=== PATIENT | female | born 1985 | race Hispanic/Latino ===

== ENCOUNTER 2018-06-18 15:06 | Outpatient (CLI) | payer OTHER ==
--- NOTE | 2018-06-18 16:20 | Ultrasound Report ---
BILATERAL DIGITAL DIAGNOSTIC MAMMOGRAM with CAD and LEFT BREAST ULTRASOUND: 06/18/18 CLINICAL: Mastodynia and a left palpable breast lump. COMPARISON:None. These are baseline studies. FINDINGS: The breasts are heterogeneously dense, which may obscure small masses.No mass, suspicious architectural distortion or suspicious calcifications . No mammographic finding at a left upper outer palpable marker where she feels a lump. Ultrasound of left breast was performed in the area of the palpable marker at 2 o'clock 8 cm from the nipple and demonstrated normal fibroglandular structures. No mass, cyst or shadowing. IMPRESSION: Negative mammogram and negative left breast ultrasound. Probably benign findings. BI-RADS CATEGORY: 3 - - Probably Benign RECOMMENDATION: Short-term followup with a repeat targeted left breast ultrasound at [facility] in three months. Alternatively, she could see a breast specialist for consultation sooner than the followup ultrasound. ACR BI-RADS MAMMOGRAPHIC CODES: 0 = Needs additional imaging evaluation; 1 = Negative; 2 = Benign; 3 = Probably benign; 4 = Suspicious; 5 = Malignant; 6 = Known biopsy-proven malignancy COMMENT: 1. Dense breast tissue, i.e., adenosis, fibrocystic changes, etc., may obscure an underlying neoplasm. 2. Approximately 10% of cancers are not detected with mammography. 3. A negative mammography report should not delay biopsy if a clinically suspicious mass is present. COMMENT: Patient follow-up letters are generated by our [place] application.
== END 2018-06-18 15:07 | disposition home or self-care (01) ==
LOC: MAMMO 15:06
PROVIDERS: ATTEND Family Medicine
DX: R92.8 Other abnormal and inconclusive findings on diagnostic imaging of breast (principal)
CPT/HCPCS: 77066

== ENCOUNTER 2019-10-12 22:47 | Inpatient (IN) | payer OTHER ==
[2019-10-12] MEDS ORDERED: BICITRA ORAL LIQD 30ML PO ONE (22:50)
[2019-10-12] MEDS ORDERED: FAMOTIDINE 20 MG/2 ML INJ IV ONE (22:50)
[2019-10-12] MEDS ORDERED: METOCLOPRAMIDE 10 MG/2 ML INJ IV ONE (22:50)
[2019-10-12] MEDS ORDERED: ceFAZolin/Water 2 GM/20 ML 2 GM/20 ML SYRINGE IV NR (23:00)
[2019-10-12] MEDS ORDERED: LACTATED RINGERS 1,000 ML IV SCH (23:00)
[2019-10-12] MEDS ORDERED: OXYTOCIN 20 UNIT/1000ML DRIP 20 UNITS/1,000 ML BAG IV SCH (23:00)
[2019-10-13 00:29] LABS: Basophils % (Auto) 0.3 % (0.0-1.8); Eosinophils # (Auto) 0.1 K/mm3 (0.0-0.4); Eosinophils % (Auto) 0.9 % (0.0-4.3); Hematocrit 33.9 % (30.3-42.9); Hemoglobin 11.1 gm/dl (10.1-14.3); Lymphocytes # (Auto) 2.3 K/mm3 (1.2-5.4); Lymphocytes % (Auto) 20.1 % (13.4-35.0); Mean Corpuscular HGB Conc 33 % (30-34); Mean Corpuscular Volume 88 fl (79-97); Platelet Count 155 K/mm3 (140-440); Red Blood Count 3.86 M/mm3 (3.65-5.03)
--- NOTE | 2019-10-13 00:35 | Anesthesia Day of Surgery ---
Anesthesia Day of Surgery - Day of Surgery Patient Examined: Yes Patient H&P Reviewed: Yes Patient is NPO: Yes Beta Blockers: No Cardiac Clearance: No Pulmonary Clearance: No Cristiano's Test: N/A
[2019-10-13] MEDS ORDERED: NALOXONE 0.4 MG/1 ML INJ IV PRN ×2 (00:37→09:47)
[2019-10-13] MEDS ORDERED: HYDROmorphone 1 MG/1 ML INJ IV PRN ×2 (00:37)
[2019-10-13] MEDS ORDERED: ONDANSETRON 4 MG/2 ML INJ IV PRN (00:37)
--- NOTE | 2019-10-13 00:37 | Anesthesia Consultation ---
Anesthesia Consult and Med Hx Date of service: 10/13/19 - Airway Anesthetic Teeth Evaluation: Good ROM Head & Neck: Adequate Mental/Hyoid Distance: Adequate Mallampati Class: Class III Intubation Access Assessment: Probably Good - Pulmonary Exam CTA: Yes - Cardiac Exam Cardiac Exam: RRR - Pre-Operative Health Status ASA Pre-Surgery Classification: ASA3, Emergency Proposed Anesthetic Plan: Epidural - Pulmonary Hx Smoking: No Hx Asthma: No Hx Respiratory Symptoms: No SOB: No COPD: No Home Oxygen Therapy: No Hx Pneumonia: No Hx Sleep Apnea: No - Cardiovascular System Hx Hypertension: No Hx Coronary Artery Disease: No Hx Heart Attack/AMI: No Hx Angina: No Hx Percutaneous Transluminal Coronary Angioplasty (PTCA): No Hx Cardia Arrhythmia: No Hx Pacemaker: No Hx Internal Defibrillator: No Hx Valvular Heart Disease: No Hx Heart Murmur: No Hx Peripheral Vascular Disease: No - Central Nervous System Hx Neuromuscular Disorder: No Hx Seizures: No CVA: No Hx Back Pain: Yes Hx Psychiatric Problems: No - Gastrointestinal Hx Ulcer: No Hx Gastroesophageal Reflux Disease: Yes - Endocrine Hx Renal Disease: No Hx End Stage Renal Disease: No Hx Cirrhosis: No Hx Liver Disease: No Hx Insulin Dependent Diabetes: No Hx Non-Insulin Dependent Diabetes: Yes (GESTATIONAL DM) Hx Thyroid Disease: No Hx Hypothyroidism: No Hx Hyperthyroidism: No - Hematic Hx Anemia: Yes (meds) Hx Sickle Cell Disease: No - Other Systems Hx Alcohol Use: No Hx Substance Use: No Hx Cancer: No Hx Obesity: Yes - Additional Comments Anesthesia Medical History Comments: PSH: CSECTION
[2019-10-13] MEDS ORDERED: DEXMEDETOMIDINE 200 MCG/2 ML VIAL IV ONE (00:59)
--- NOTE | 2019-10-13 03:42 | History and Physical Report ---
History of Present Illness Date of examination: 10/13/19 Date of admission: 10/12/19 22:47 Chief complaint: my water broke History of present illness: Pt is a 34 year old female RENNY 11/11/19 at 35w6d who presents with rupture of membranes at 2200 PM on 10/12/19. She reports irregular contractions but denies vaginal bleeding. She has had care at [facility] with comanagment by [facility] since 12 wks complicated by advanced maternal age, gestational diabetes A1, and history of prior section. Her GBS status is unknown. The patient does not desire future fertility. Past History Past Medical History: diabetes (gestational, per HPI ), other (h/o depression ) Past Surgical History: section Family/Genetic History: diabetes, cancer Social history: no significant social history, - Obstetrical History Expected Date of Delivery: 11/11/19 Actual Gestation: 36 Week(s) 0 Day(s) : 4 Para: 1 Hx # Term Pregnancies: 1 Number of Pregnancies: 0 Spontaneous Abortions: 2 Induced : 0 Number of Living Children: 1 Medications and Allergies Allergies Allergy/AdvReac Type Severity Reaction Status Date / Time No Known Allergies Allergy Verified 10/14/16 03:24 Home Medications Medication Instructions Recorded Confirmed Last Taken Type Ferrous Sulfate [Feosol 325 MG tab] 325 mg PO BID #60 tablet 10/14/16 10/12/19 10/12/19 08:00 Rx Ibuprofen [Motrin] 800 mg PO Q8HR PRN #30 tablet 10/14/16 10/12/19 Unknown Rx Vit-Fe Fumar-FA [ 1 tab PO QDAY #30 tablet 10/14/16 10/12/19 10/12/19 08:00 Rx Vitamin] oxyCODONE /ACETAMINOPHEN [Percocet 1 tab PO Q6HR PRN #40 tablet 10/14/16 10/12/19 Unknown Rx 5/325] Active Meds: Active Medications Hydromorphone HCl (Dilaudid) 0.5 mg IV Q5M PRN PRN Reason: BREAK Stop: 10/13/19 06:59 Hydromorphone HCl (Dilaudid) 0.5 mg IV Q4H PRN PRN Reason: breakthrough pain > 7/10 Oxytocin/Sodium Chloride (Pitocin/Ns 20 Unit/1000ml Drip) 20 units in 1,000 mls @ 0 mls/hr IV TITR NILSON Lactated Ringer's (Lactated Ringers) 1,000 mls @ 2,250 mls/hr IV PREOP NILSON Stop: 10/13/19 23:27 Naloxone HCl (Naloxone) 0.2 mg IV Q2MIN PRN PRN Reason: Res Rate </= 8 or 02 SAT < 92% Ondansetron HCl (Zofran) 4 mg IV Q8H PRN PRN Reason: Nausea And Vomiting Sodium Chloride (Sodium Chloride Flush Syringe 10 Ml) 10 ml IV PRN PRN PRN Reason: LINE FLUSH Review of Systems All systems: negative - Vital Signs Vital signs: Vital Signs Temp Resp 98.2 F 18 10/12/19 23:50 10/12/19 23:50 Temp Pulse Resp BP Pulse Ox 98.2 F 18 10/12/19 23:50 10/12/19 23:50 - Physical Exam Breasts: Positive: deferred Cardiovascular: Regular rate Lungs: Positive: Clear to auscultation Abdomen: Positive: soft (obese, gravid) Genitourinary (Female): Positive: normal external genitalia Uterus: Positive: enlarged (gravid ) - Obstetrical FHR: auscultation normal Uterine Contraction Monitor Mode: External Uterine Contraction Pattern: Irregular Uterine Tone Measurement Phase: Resting Uterine Contraction Intensity: Mild Results Result Diagrams: 10/13/19 18:50 Abnormal lab results 10/12/19 Range/Units 23:32 WBC 11.4 H (4.5-11.0) K/mm3 RDW 24.0 H (13.2-15.2) % [place] % (Auto) 9.0 H (0.0-7.3) % [place] # 1.0 H (0.0-0.8) K/mm3 Seg Neutrophils # 7.9 H (1.8-7.7) K/mm3 All other labs normal. Assessment and Plan A: IUP at 35w6d PPROM Prior section Undesired Fertility Gestational Diabetes A1 Advanced Maternal Age GBS unknown P: Admit to labor and delivery Accuchek now Proceed with repeat section and bilateral tubal ligation and other indicated procedures
[2019-10-13] MEDS ORDERED: ceFAZolin/Water 2 GM/20 ML 2 GM/20 ML SYRINGE IV NR (05:00)
[2019-10-13] MEDS ORDERED: BICITRA ORAL LIQD 30ML PO ONE (05:07)
[2019-10-13] MEDS ORDERED: METOCLOPRAMIDE 10 MG/2 ML INJ IV ONE (05:07)
[2019-10-13] MEDS ORDERED: FAMOTIDINE 20 MG/2 ML INJ IV ONE (05:07)
[2019-10-13] MEDS ORDERED: METOCLOPRAMIDE 10 MG/2 ML INJ ONE (05:10)
[2019-10-13] MEDS ORDERED: BICITRA ORAL LIQD 30ML ONE (05:10)
[2019-10-13] MEDS ORDERED: METHYLERGONOVINE MALEATE 0.2 MG/ML VIAL IM ONE (05:11)
[2019-10-13] MEDS ORDERED: LACTATED RINGERS 1,000 ML IV SCH (06:00)
[2019-10-13] MEDS ORDERED: OXYTOCIN 20 UNIT/1000ML DRIP 20 UNITS/1,000 ML BAG IV SCH ×2 (06:00→09:47)
[2019-10-13] MEDS ORDERED: ONDANSETRON 4 MG/2 ML INJ ONE ×2 (06:08→06:44)
[2019-10-13] MEDS ORDERED: KETOROLAC 30 MG/1 ML INJ ONE (06:44)
[2019-10-13] MEDS ORDERED: OXYTOCIN 10 UNIT/1 ML INJ ONE (06:49)
--- NOTE | 2019-10-13 07:19 | Procedure Note ---
OB Delivery Note - Delivery Date of Delivery: 10/13/19 Surgeon: ARIE HERRERA Estimated blood loss: 1000cc - Section Preop diagnosis: repeat , desires sterilization, other (PPROM ) Postop diagnosis: same section procedure: section, repeat low transverse, bilateral tubal ligation Disposition: PACU Complications: none Narrative: Please see operative report - Infant A at 1 minute: 8 at 5 minutes: 9 Infant Gender: Female (2875g (6lb 5.4 oz) @ 0637 am)
--- NOTE | 2019-10-13 07:19 | Operative Report ---
Operative Report Operative Report: Date of procedure: October 13, 2019 Preoperative diagnosis: 1) IUP at 35w6d 2) PPROM 3) Prior section 4) Obesity 5) Undesired Fertility Postoperative diagnosis: Same 6) Adhesive Disease Procedure: 1) Repeat low transverse section 2) Bilateral tubal ligation via modified [place] method 3) Lysis of Adhesions Surgeon: Carlyn England M.D. Anesthesia: Regional Findings: 1) Viable female , Apgars 8 and 9, weight 2875g, (6 lb 5.4 oz) in cephalic presentation 2) Normal-appearing uterus ovaries and tubes 3) Dense adhesions of omentum and parietal peritoneum to anterior surface of the uterus Estimated blood loss: 1000 mL IV fluids:1400 mL Urine output: 100 mL, clear at the end of the procedure Drains: Rivera to gravity Specimens: Placenta to pathology Complications: Counts correct x 3 Disposition: Stable to PACU Indication for procedure: Pt is a 34 year old female at 35w6d with a h/o of one prior who presents with PPROM. The decision was made to proceed with delivery. Operation in detail: After the risks, benefits, alternatives and complications were explained to the patient she gave informed consent for the procedure. She was subsequently taken to the operating room where regional anesthesia was noted to be adequate. She was subsequently placed in the dorsal supine position with leftward tilt and prepped and draped in a normal sterile fashion. heart tones were noted prior to incision. A timeout was performed. A Pfannenstiel skin incision was made with the knife and carried down to the layer of the fascia with the Bovie. The fascia was incised in the midline and the fascial incision was extended bilaterally with the Bovie. The fascial incision was then stretched. The rectus muscles were then in the midline. The peritoneum was then entered sharply between two Lissa clamps. Approximately 15 minutes were spent in lysis of adhesions of the parietal peritoneum and omentum to the anterior surface of the uterus with the Bovie. The peritoneal incision was extended with good visualization of the bladder. The peritoneal incision was then stretched. An Ramiro retractor was placed. The bladder blade was placed. The vesicouterine peritoneum was grasped with smooth pickups and incised with Metzenbaum scissors. Metzenbaum scissors were used to extend the incision bilaterally. The bladder flap was then created digitally and the bladder blade was replaced. A transverse incision was made in the lower uterine segment with a knife and extended bilaterally with the bandage scissors. The head was delivered without difficulty, followed by delivery of the shoulders and body. was bulb suctioned at delivery. The cord was clamped and cut and the was handed to NICU staff in attendance. The placenta was then delivered manually. The uterus was then exteriorized and cleared of all clots and debris. The hysterotomy was then reapproximated with 0 Vicryl in a running locked fashion. A second layer of the same suture was used in an imbricating fashion. The hysterotomy was inspected and hemostasis was noted. The uterus was placed back into the peritoneal cavity. The gutters were irrigated and cleared of all clots and debris. The hysterotomy was again inspected and noted to be hemostatic. Surgicel was placed over the hysterotomy. Intercede was placed over the anterior surface of the uterus. The peritoneum was reapproximated with 2-0 Vicryl in a running fashion incorporating the rectus muscles. The fascia was reapproximated with 0-Vicryl in a running fashion. The subcutaneous tissue was reapproximated with 3-0 Vicryl in a running fashion. The skin was reapproximated with al. The incision was then covered with a pressure dressing. The procedure was then ended. The patient tolerated the procedure well and was taken to the PACU in stable condition. All instrument, lap, and needle counts were correct 3.
--- NOTE | 2019-10-13 08:45 | Post Anesthesia Evaluation ---
- Post Anesthesia Evaluation Patient Participated: Yes Airway Patent: Yes Stable Respiratory Function: Yes Nausea/Vomiting: No Temp > 96.8F: Yes Pain Manageable: Yes Adequeate Hydration: Yes Anesthesia Complications: No Block Receding Appropriately: Yes Patient on Ventilator: No
[2019-10-13] MEDS ORDERED: WITCH HAZEL/ GLYCERIN PAD TP PRN (09:47)
[2019-10-13] MEDS ORDERED: KETOROLAC 30 MG/1 ML INJ IV PRN (09:47)
[2019-10-13] MEDS ORDERED: SIMETHICONE 80 MG CHEW TAB PO PRN (09:47)
[2019-10-13] MEDS ORDERED: LANOLIN/ZINC/DIMETHICONE (LANSINOH) 7 GM TP PRN (09:47)
[2019-10-13] MEDS ORDERED: D5W/LACTATED RINGERS 1,000 ML IV SCH (09:47)
[2019-10-13] MEDS ORDERED: MORPHINE 4 MG/1 ML INJ IV PRN (09:47)
[2019-10-13] MEDS ORDERED: MORPHINE 2 MG/1 ML INJ IV PRN (09:47)
[2019-10-13] MEDS: oxyCODONE /ACETAMINOPHEN 5-325MG TAB PO PRN ×2 (16:48→21:45)
[2019-10-13 19:04] LABS: Hematocrit 35.7 % (30.3-42.9)
[2019-10-14] MEDS: IBUPROFEN 800 MG TAB PO PRN ×2 (00:20→18:45)
[2019-10-14] MEDS: oxyCODONE /ACETAMINOPHEN 5-325MG TAB PO PRN ×4 (05:47→20:27)
[2019-10-14] MEDS ORDERED: MEASLES, MUMPS & RUBELLA 12,500 UNIT/0.5 ML VACCINE SUB-Q ONE (06:00)
[2019-10-14] MEDS ORDERED: TETANUS,DIPH,PERTUSS(ACELL) VACCINE 0.5 ML SYRINGE IM ONE (06:00)
--- NOTE | 2019-10-14 08:57 | Progress Note ---
Assessment and Plan A/P POD 1 s/p csec and tubal rotine care Subjective - Subjective Date of service: 10/14/19 Principal diagnosis: s/p csec/tubal ligation Patient reports: appetite normal, voiding normally, pain well controlled, flatus, ambulating normally [place]: doing well, in NICU Objective - Vital Signs Latest vital signs: Vital Signs Temp Pulse Resp BP BP Pulse Ox 10/14/19 08:19 97.6 F 86 18 100/63 10/14/19 05:47 18 10/14/19 05:35 97.4 F L 81 18 104/70 98 10/14/19 01:27 98.2 F 76 18 106/65 98 10/14/19 00:20 18 10/13/19 21:48 98.9 F 76 18 119/79 98 10/13/19 21:45 18 10/13/19 17:36 97.9 F 92 H 18 104/61 98 Intake and Output 10/13/19 10/14/19 10/14/19 23:59 07:59 15:59 Intake Total 360 480 480 Output Total 400 Balance 360 80 480 Intake: Oral 360 480 Intake, Free Water 480 Output: Urine 400 Void 400 Other: Total, Intake Amount 360 480 Total, Output Amount 400 # Voids Void 2 - Exam Breasts: Present: normal Cardiovascular: Present: Regular rate, Normal S1 Lungs: Present: Clear to auscultation, Normal air movement Abdomen: Present: normal appearance, soft, normal bowel sounds. Absent: distention, tenderness, guarding Vulva: both: normal Uterus: Present: normal, firm, fundal height below umbilicus. Absent: bogginess, tenderness Extremities: Present: normal Deep Tendon Reflex Grade: Normal +2 Incision: Present: normal, dry, intact
[2019-10-15] MEDS: oxyCODONE /ACETAMINOPHEN 5-325MG TAB PO PRN ×4 (04:09→19:43)
--- NOTE | 2019-10-15 10:34 | Progress Note ---
Assessment and Plan POD1 s/p repeat c/s and tubal ligation Vital signs and labs stable Routine pp care d/c to home on POD2 or 3 Subjective - Subjective Date of service: 10/15/19 Principal diagnosis: s/p csec/tubal ligation Interval history: Pt is POD1 s/p c/s with tubal ligation Patient reports: appetite normal, voiding normally, pain well controlled, flatus, ambulating normally : doing well, nursing well (both), bottle feeding Objective - Vital Signs Latest vital signs: Vital Signs Temp Pulse Resp BP BP Pulse Ox 10/15/19 08:22 98.2 F 88 20 98/61 98 10/15/19 04:12 98.2 F 90 20 94/55 97 10/15/19 04:09 18 10/14/19 20:27 18 10/14/19 16:24 98.0 F 104 H 18 112/76 Intake and Output 10/14/19 10/15/19 10/15/19 23:59 07:59 15:59 Intake Total 680 Balance 680 Intake: Oral 680 Other: Total, Intake Amount 200 # Voids Void 1 - Exam Lungs: Present: Normal air movement Abdomen: Present: soft Uterus: Present: firm, fundal height below umbilicus Extremities: Present: normal Incision: Present: dressed
[2019-10-15] MEDS: IBUPROFEN 800 MG TAB PO PRN (23:09)
[2019-10-16] MEDS: oxyCODONE /ACETAMINOPHEN 5-325MG TAB PO PRN ×3 (03:39→15:17)
[2019-10-16] MEDS: IBUPROFEN 800 MG TAB PO PRN ×2 (05:34→13:57)
[2019-10-16 08:52] VITALS: BP 107/68
--- NOTE | 2019-10-16 11:39 | Progress Note ---
Assessment and Plan POD2 s/p repeat c/s and tubal ligation Vital signs and labs stable Repeat H/H Routine pp care d/c to home today Subjective - Subjective Date of service: 10/16/19 Principal diagnosis: s/p csec/tubal ligation Interval history: Pt is POD2 s/p c/s with tubal ligation Patient reports: appetite normal, voiding normally, pain well controlled, flatus, ambulating normally [place]: doing well, nursing well Objective - Vital Signs Latest vital signs: Vital Signs Temp Pulse Resp BP Pulse Ox 10/16/19 07:43 98.5 F 81 18 107/68 98 10/16/19 05:34 18 10/16/19 03:39 18 10/16/19 00:13 98.2 F 81 20 93/58 97 10/15/19 23:09 18 10/15/19 19:43 18 10/15/19 16:23 98.2 F 89 22 100/63 95 Intake and Output 10/15/19 10/16/19 10/16/19 23:59 07:59 15:59 Intake Total 600 240 Balance 600 240 Intake: Oral 600 240 Other: Total, Intake Amount 120 240 # Voids Void 1 1 - Exam Lungs: Present: Normal air movement Abdomen: Present: soft Uterus: Present: firm, fundal height below umbilicus Extremities: Present: normal Incision: Present: normal, dry, intact, other (al present)
[2019-10-16 11:46] LABS: Hematocrit 32.9 % (30.3-42.9); Hemoglobin 10.9 gm/dl (10.1-14.3)
--- NOTE | 2019-10-16 12:39 | Discharge Summary ---
Providers - Providers Date of Admission: 10/12/19 22:47 Date of discharge: 10/16/19 Attending physician: ARIE HERRERA Primary care physician: ARIE HERRERA Hospitalization Reason for admission: section Delivery: Procedure: bilateral tubal ligation, repeat low transverse Episiotomy: none Laceration: none Incision: normal, dry, intact, other (al preset) complications: none Discharge diagnosis: IUP at term delivered Hospital course: Pt presented for repeat c/s and BTL. course uncomplicated. Will return to office for staple removal in 1 week. Condition at discharge: Good Disposition: DC-01 TO HOME OR SELFCARE Plan - Discharge Medications Prescriptions: oxyCODONE /ACETAMINOPHEN [Percocet 5/325] 1 tab PO Q6HR PRN #30 tablet PRN Reason: Pain - Provider Discharge Summary Activity: routine, no sex for 6 weeks, no heavy lifting 4 weeks, no strenuous exercise Diet: routine Instructions: routine Additional instructions: [] Smoking cessation referral if applicable(refer to patient education folder for contact #) [] Refer to [facility] Booklet Call your doctor immediately for: * Fever > 100.5 * Heavy vaginal bleeding ( >1 pad per hour) * Severe persistent headache * Shortness of breath * Reddened, hot, painful area to leg or breast * Drainage or odor from incision. * Keep incision clean and dry at all times and follow doctor's instructions regarding bathing/showering - Follow up plan Follow up: ARIE HERRERA MD [Primary Care Provider] - 7 Days
== END 2019-10-16 16:30 | disposition home or self-care (01) | DRG 783 ==
LOC: APU 22:47 → OB 10-13 09:46
PROVIDERS: ADMIT Obstetrics & Gynecology; ATTEND Obstetrics & Gynecology
PROC: 10D00Z1 Extraction of Products of Conception, Low, Open Approach (ICD-10-PCS; principal; 2019-10-13)
PROC: 0UB70ZZ Excision of Bilateral Fallopian Tubes, Open Approach (ICD-10-PCS; 2019-10-13)
PROC: 0DNU0ZZ Release Omentum, Open Approach (ICD-10-PCS; 2019-10-13)
PROC: 3E0134Z Introduction of Serum, Toxoid and Vaccine into Subcutaneous Tissue, Percutaneous Approach (ICD-10-PCS; 2019-10-14)
PROC: 3E0234Z Introduction of Serum, Toxoid and Vaccine into Muscle, Percutaneous Approach (ICD-10-PCS; 2019-10-14)
DX: O34.211 Maternal care for low transverse scar from previous cesarean delivery (principal); O60.14X0 Preterm labor third trimester with preterm delivery third trimester, not applicable or unspecified; Z37.0 Single live birth; O42.013 Preterm premature rupture of membranes, onset of labor within 24 hours of rupture, third trimester; O99.214 Obesity complicating childbirth; O99.62 Diseases of the digestive system complicating childbirth; O24.420 Gestational diabetes mellitus in childbirth, diet controlled; K66.0 Peritoneal adhesions (postprocedural) (postinfection); E66.9 Obesity, unspecified; K21.9 Gastro-esophageal reflux disease without esophagitis; Z3A.36 36 weeks gestation of pregnancy; Z23 Encounter for immunization; Z30.2 Encounter for sterilization
CPT/HCPCS: 36415; 82962; 85014; 85018; 85025; 86850; 86900; 86901; 88302; 88307; G0378; C1765; J0690; J1885; J2210; J2405; J2590; J2765; J3490; J7120